=== PATIENT | male | born 1965 | race Caucasian/White ===

== ENCOUNTER 2019-09-04 09:31 | Inpatient (IN) | payer BC ==
[~2019-09-04] VITALS: Ht 182.9 cm; Wt 86.9 kg
[2019-09-04 09:40] LABS: Calcium, Ionized (POC) 1.13 mmol/L (1.10-1.46); Chloride (POC) 108 mmol/L (98-108); Creatinine (POC) 1.1 mg/dL (0.8-1.3); Glucose (ISTAT POC) 452 mg/dL (70-99); Hemoglobin (POC) 15.3 g/dL (13.5-17.5); Potassium (POC) 3.2 mmol/L (3.5-5.5); Sodium (POC) 141 mmol/L (135-148); Total CO2 (POC) 19 mmol/L (21-32)
[2019-09-04 09:41] LABS: Base Excess Venous -22.1 mmol/L; Bicarbonate Venous 8.8 mmol/L (24.0-30.0); PCO2 Venous 54.9 mmHg (38-42); PO2 Venous 55.7 mmHg (38-42)
[2019-09-04 10:09] LABS: BASOPHILS ABSOLUTE AUTO 0.22 K/mm3 (0.00-0.23); BASOPHILS PERCENT AUTO 1 % (0-2); EOSINOPHILS ABSOLUTE AUTO 0.23 K/mm3 (0.00-0.68); EOSINOPHILS PERCENT AUTO 1 % (0-6); Hematocrit 46.7 % (37.0-53.0); Hemoglobin 14.1 g/dL (13.5-17.5); IMMATURE GRAN ABSOLUTE AUTO 1.34 K/mm3 (0.00-0.10); IMMATURE GRAN PERCENT AUTO 5 % (0-1); LYMPHOCYTES ABSOLUTE AUTO 12.51 K/mm3 (0.84-5.20); LYMPHOCYTES PERCENT AUTO 50 % (21-46); MONOCYTES ABSOLUTE AUTO 1.42 K/mm3 (0.16-1.47); MONOCYTES PERCENT AUTO 6 % (4-13); Mean Corpuscular HGB 30.1 pg (26.0-34.0); Mean Corpuscular HGB Conc 30.2 g/dL (31.5-36.5); Mean Corpuscular Volume 100 fL (80-100); Mean Platelet Volume 12.3 fL (9.1-12.4); NEUTROPHILS ABSOLUTE AUTO 9.51 K/mm3 (1.96-9.15); NEUTROPHILS PERCENT AUTO 38 % (41-73); NRBC ABSOLUTE 0.07 K/mm3 (0.00-0.02); NRBC Auto 0.3 /100 WBC (0.0-0.2); Platelet Count 204 K/mm3 (150-400); RDW Coefficient Variation 13.3 % (11.7-14.2); RDW Standard Deviation 49.2 fL (35.1-46.3); Red Blood Cell Count 4.69 M/mm3 (4.30-5.90); White Blood Cell Count 25.23 K/mm3 (4.00-11.30)
[2019-09-04 10:37] LABS: Troponin I 0.274 ng/mL (0.000-0.040)
[2019-09-04 10:40] LABS: Alanine Aminotransfer (ALT/SGP 142 U/L (12-78); Albumin, Blood 2.8 g/dL (3.4-5.0); Albumin/Globulin Ratio 0.9 (0.8-1.8); Alk Phos 146 U/L (50-136); Anion Gap 17 mmol/L (6-16); Aspartate Aminotrans (AST/SGOT 158 U/L (12-37); Bilirubin, Total 0.2 mg/dL (0.1-1.0); Blood Urea Nitrogen 12 mg/dL (8-24); Bun/Creatinine Ratio 14.2 (12.0-20.0); CO2, Blood 16 mmol/L (21-32); Calcium, Blood 8.4 mg/dL (8.5-10.1); Chloride, Blood 108 mmol/L (98-108); Creatinine, Blood 0.84 mg/dL (0.60-1.20); Globulin, Blood 3.2 g/dL (2.2-4.0); Glomerular Filtration Rate >60 (60-); Glucose, Blood 609 mg/dL (70-99); Potassium, Blood 4.3 mmol/L (3.5-5.5); Sodium, Blood 141 mmol/L (136-145)
[2019-09-04 12:48] LABS: Cholesterol 161 mg/dL (50-200); Ethanol (Alcohol), Blood, Med 3 mg/dL; HDL Cholesterol 54 mg/dL (>39); LDL/HDL RATIO 1.3; Low Density Lipoprotein Chol 69 mg/dL (0-110); Triglycerides 188 mg/dL (30-160); Very Low Density Lipoprot Chol 37 mg/dL (6-32)
[2019-09-04 12:49] LABS: International Normalized Ratio 1.02; Prothrombin Time Results 10.8 Sec (9.7-11.5)
[2019-09-04] MEDS ORDERED: INSULIN (13:30)
--- NOTE | 2019-09-04 13:30 | NUR ---
PT ARRIVES TO UNIT FROM [facility] AT 1307 POST STENT PLACEMENT TO MID LAD. REPORT FROM DUNIA BRITTON. PT ARRIVES INTUBATED, AC 14/450/5/60%. LUNGS CLEAR. OGT IN PLACE AND CLAMPED. PT OPENS EYES, FOLLOWS COMMANDS. APPEARS TO RECOGNIZE FAMILY IN ROOM. CALM AND COOPERATIVE. ORIENTED TO ROOM AND EVENTS. MERIDA PATENT, DRAINING CLEAR YELLOW URINE. VENOUS AND ARTERIAL SHEATH TO RIGHT GROIN, SITE CHECKED c DUNIA RN. NO BLEEDING NOTED, SOFT, NON TENDER. WILL MAINTAIN SUPINE POSITION. AMIODORONE INFUSING AT 1 MCG/MIN. STARTED PROPOFOL AT 15 MCG/KG/MIN AND NS AT 125 ML/HR. FAMILY AT BEDSIDE. WILL CONTINUE TO MONITOR.
[2019-09-04 15:21] LABS: Source, Urine Catheter
--- NOTE | 2019-09-04 15:21 | NUR ---
DR PATRICK AND DR Ritchie IN TO SEE PT. PT FOLLOWING COMMANDS, BREATHING c SPONTANEOUS TRIAL. PROPOFOL PLACED ON STANDBY AT 1425. RT AT BEDSIDE FOR EXTUBATION. PT EXTUBATED AT 1440, PLACED ON 4L O2 VIA NC. PT ABLE TO MANAGE SECRETIONS, COUGH PRESENT. SPEAKING IN QUIET VOICE. ORIENTED TO ROOM AND EVENTS. PT VERBALIZES UNDERSTANDING. NEW ORDERS OBTAINED FROM DR PATRICK. INSULIN BOLUS 10 UNITS IV, INFUSION AT 9 UNITS/HR, VERIFIED c TIA BRITTON. URINE SENT TO LAB FOR KETONES. WILL MONITOR NEURO STATUS PRIOR TO CT SCAN. PER DR Ritchie, HEPARIN DRIP HELD. WILL CHECK CHEMBG Q1.
[2019-09-04 15:27] LABS: Bilirubin, Urine Neg (Neg); Blood, Urine 5+ (Neg); Glucose Qualitative, Urine 4+ (Neg); Ketones, Urine Neg (Neg); Leukocyte Esterase, Urine Neg (Neg); Nitrite, Urine Neg (Neg); Protein, Urine 3+ (Neg); Urobilinogen, Urine NORM (Normal)
[2019-09-04 15:33] LABS: Appearance, Urine Hazy (Clear); Color, Urine Yellow (P-Yellow)
[2019-09-04 15:36] LABS: Red Blood Cells, Urine 25-50 /hpf (0-2)
[2019-09-04 15:37] LABS: Bacteria Many /hpf; Squamous Epithelial Cells Rare /hpf (Few)
[2019-09-04 15:37] LABS: Glucose, Blood 468 mg/dL (70-99)
[2019-09-04 15:39] LABS: Amorphous Light (0-Heavy)
[2019-09-04 15:42] LABS: U Amphetamine Screen Not Detected; U Barbituate Screen Not Detected; U Benzodiazapine Screen Not Detected; U Buprenorphine Screen Not Detected; U Cannabinoids Screen DETECTED; U Cocaine Screen Not Detected; U Methadone Screen Not Detected; U Methamphetamine Screen Not Detected; U Opiates Screen Not Detected; U Oxycodone Screen Not Detected; U Phencyclidine Screen Not Detected; U Propoxyphene Screen Not Detected
[2019-09-04 15:44] LABS: Anion Gap 11 mmol/L (6-16); Blood Urea Nitrogen 17 mg/dL (8-24); CO2, Blood 18 mmol/L (21-32); Calcium, Blood 7.9 mg/dL (8.5-10.1); Chloride, Blood 111 mmol/L (98-108); Glomerular Filtration Rate >60 (60-); Glucose, Blood 468 mg/dL (70-99); Potassium, Blood 4.2 mmol/L (3.5-5.5); Sodium, Blood 140 mmol/L (136-145)
[2019-09-04 16:11] LABS: Base Excess Venous -12.7 mmol/L; Bicarbonate Venous 14.1 mmol/L (24.0-30.0); PCO2 Venous 52.1 mmHg (38-42); PO2 Venous 39.9 mmHg (38-42); pH Blood Venous 7.12 (7.34-7.37)
[2019-09-04 16:32] LABS: Anion Gap 9 mmol/L (6-16); Blood Urea Nitrogen 18 mg/dL (8-24); CO2, Blood 18 mmol/L (21-32); Calcium, Blood 7.7 mg/dL (8.5-10.1); Chloride, Blood 113 mmol/L (98-108); Creatinine, Blood 1.06 mg/dL (0.60-1.20); Glomerular Filtration Rate >60 (60-); Glucose, Blood 439 mg/dL (70-99); Potassium, Blood 4.1 mmol/L (3.5-5.5); Sodium, Blood 140 mmol/L (136-145)
--- NOTE | 2019-09-04 17:49 | NUR ---
SHIFT SUMMARY PT TO ICU FROM [facility] POST CARDIAC ARREST AND STENT PLACEMENT TO MID LAD. PT EXTUBATED THIS SHIFT. FOLLOWING COMMANDS. A&O X2. REPETITIVE QUESTIONING REGARDING EVENTS THAT LED TO HOSPITALIZATION. O2 AT 4L VIA NC. MERIDA CATH REMAINS IN PLACE. RECTAL TUBE PLACED FOR LOOSE FREQUENT STOOLS. RIGHT GROIN VENOUS AND ARTERIAL SHEATHS REMAIN IN PLACE. AWAITING PTT RESULTS. VSS. RHYTHM UNCHANGED FROM ARRIVAL TO UNIT. INSULIN DRIP STARTED, CURRENTLY INFUSING AT 9 UNITS/HR. AMIODORONE INFUSING AT 0.5MG/MIN. PER DR D, REPEAT ASA 325 MG PO AND BRILLENTA 180 MG PO WHEN PT CAN SWALLOW D/T PT VOMITING POST EXTUBATION. WILL CONTINUE TO MONITOR TROPONIN AND LACTIC ACID TRENDS. REPORT TO ONCOMING NURSE.
[2019-09-04 18:59] LABS: Base Excess Venous -10.8 mmol/L; Bicarbonate Venous 16.1 mmol/L (24.0-30.0); PCO2 Venous 40.9 mmHg (38-42); PO2 Venous 45.1 mmHg (38-42)
[2019-09-04 19:00] LABS: pH Blood Venous 7.22 (7.34-7.37)
[2019-09-04 19:37] LABS: Anion Gap 9 mmol/L (6-16); Blood Urea Nitrogen 21 mg/dL (8-24); Bun/Creatinine Ratio 21.4 (12.0-20.0); CO2, Blood 17 mmol/L (21-32); Calcium, Blood 7.5 mg/dL (8.5-10.1); Chloride, Blood 117 mmol/L (98-108); Creatinine, Blood 0.98 mg/dL (0.60-1.20); Glomerular Filtration Rate >60 (60-); Glucose, Blood 324 mg/dL (70-99); Potassium, Blood 3.5 mmol/L (3.5-5.5); Sodium, Blood 143 mmol/L (136-145)
[2019-09-04 21:06] LABS: PCO2 Arterial 32.9 mmHg (35-45); PO2 Arterial 58.9 mmHg (80-100); pH Blood Arterial 7.29 (7.35-7.45)
[2019-09-04 22:01] LABS: Creatine Kinase MB 36.7 ng/mL (0.0-3.6)
--- NOTE | 2019-09-04 22:26 | NUR ---
BEGIN SHIFT PT. LYING IN BED, COMFORTABLE, 7/10 DULL NON-SPECIFIC CHEST/THORAX PAIN, LIKELY FROM MULTIPLE ROUNDS OF CPR. WILL GIVE FENTANYL WHEN FINISHED WITH ASSESSMENT. SPO2 100% ON 4L NC, TITRATE DOWN TO 3L, INFORMED RT. LR WITH 60MEQ OF POTASSIUM RUNNING AT 100 ML/HR, NS RUNNING @ 125 ML/HR, AMIODARONE AT MAINTENANCE OF 0.5 MG/MIN (16.7 ML/HR.) ASSESSMENT, VITALS ARE CHARTED. WILL CONTINUE TO MONITOR. 20:25 PT. C/O SUDDEN SHARP CHEST MID-STERNAL CHEST PAIN, S.O.B. SPO2 NOW 84% ON 3L, HAD STARTED TO TITRATE DOWN AT BEGIN OF SHIFT. PAGED CARDIOLOGY AFTER PLACING PT. ON NON-REBREATHER @ 15L (SPO2 NOW ~ 92%,) ORDERED STAT CHEST XRAY, ABG, ALSO SPOKE WITH DR. PATRICK, GIVE 40 MG LASIX. LIKELY PULMONARY EDEMA, NO CHANGE ON EKG, MINIMAL CHANGE OF CHEST XRAY. PATIENT PLACED ON BIPAP, 05/10, 40%. CHEST PAIN AND SHORTNESS OF BREATH RESOLVED WITH BIPAP. WILL CONINUE TO MONITOR.
[2019-09-04 22:27] LABS: Creatine Kinase MB Index 2.8 (0.0-4.0); Troponin I 5.72 ng/mL (0.000-0.040)
[2019-09-05 03:07] LABS: BASOPHILS ABSOLUTE AUTO 0.05 K/mm3 (0.00-0.23); BASOPHILS PERCENT AUTO 0 % (0-2); EOSINOPHILS PERCENT AUTO 0 % (0-6); IMMATURE GRAN ABSOLUTE AUTO 0.13 K/mm3 (0.00-0.10); IMMATURE GRAN PERCENT AUTO 1 % (0-1); LYMPHOCYTES ABSOLUTE AUTO 1.95 K/mm3 (0.84-5.20); LYMPHOCYTES PERCENT AUTO 7 % (21-46); MONOCYTES ABSOLUTE AUTO 2.19 K/mm3 (0.16-1.47); MONOCYTES PERCENT AUTO 8 % (4-13); Mean Corpuscular HGB 30.2 pg (26.0-34.0); Mean Corpuscular HGB Conc 33.3 g/dL (31.5-36.5); Mean Platelet Volume 11.8 fL (9.1-12.4); NEUTROPHILS ABSOLUTE AUTO 22.11 K/mm3 (1.96-9.15); NEUTROPHILS PERCENT AUTO 84 % (41-73); Platelet Count 279 K/mm3 (150-400); RDW Coefficient Variation 13.4 % (11.7-14.2); Red Blood Cell Count 4.64 M/mm3 (4.30-5.90); White Blood Cell Count 26.43 K/mm3 (4.00-11.30)
[2019-09-05 03:09] LABS: Mean Corpuscular Volume 91 fL (80-100)
[2019-09-05 03:26] LABS: Alanine Aminotransfer (ALT/SGP 220 U/L (12-78); Albumin, Blood 3.1 g/dL (3.4-5.0); Albumin/Globulin Ratio 0.9 (0.8-1.8); Alk Phos 126 U/L (50-136); Anion Gap 10 mmol/L (6-16); Aspartate Aminotrans (AST/SGOT 179 U/L (12-37); Bilirubin, Total 0.5 mg/dL (0.1-1.0); Blood Urea Nitrogen 17 mg/dL (8-24); Bun/Creatinine Ratio 19.1 (12.0-20.0); CO2, Blood 18 mmol/L (21-32); Calcium, Blood 8.1 mg/dL (8.5-10.1); Chloride, Blood 117 mmol/L (98-108); Creatinine, Blood 0.89 mg/dL (0.60-1.20); Globulin, Blood 3.5 g/dL (2.2-4.0); Glomerular Filtration Rate >60 (60-); Glucose, Blood 298 mg/dL (70-99); Magnesium, Blood 1.7 mg/dL (1.6-2.4); Sodium, Blood 145 mmol/L (136-145); Total Protein, Blood 6.6 g/dL (6.4-8.2)
--- NOTE | 2019-09-05 07:30 | NUR ---
ASSUMED CARE AT 0700. REPORT FROM LUIS BRITTON. PT RESTING IN BED. CONVERSING c FAMILY. REQUESTING WATER. PT REMAINS SUPINE c BED TILTED. A&OX 3. ANSWERS MOST QUESTIONS APPROPRIATELY. FOLLOWS COMMANDS. C/O CHEST WALL PAIN. PER NOC NURSE, ECTOPY NOTED, CONTROL AREA OPERATOR CALLED, MAG ORDERED. LUNGS COARSE THROUGHOUT. OCCASIONAL COUGH. PT P/W/D. O2 VIA NC AT 4L. ABD ROUND, SOFT NON TENDER. RECTAL TUBE IN PLACE, DRAINING TO GRAVITY, LOOSE BROWN STOOL. MERIDA PATENT AND DRAINING TO GRAVITY. ARTERIAL AND VENOUS SHEATH IN PLACE. NO PAIN, SWELLING OR BLEEDING. PPP. VSS. WILL CONTINUE TO MONITOR.
--- NOTE | 2019-09-05 07:39 | NUR ---
SHIFT SUMMARY PATIENT DID WELL THROUGH NIGHT. MILD PAIN, CONTROLLED WELL WITH PRN PAIN MEDS. CONTINUOUSLY ASKED FOR WATER, STATED NEED TO PEE. GAVE SWABS, HELD OFF ON FLUID UNTIL DETERMINATION OF GOING TO GENERAL SUPERINTENDENT OR NOT. SWABBED MOUTH FREQUENTLY TO NO AVAIL. RE-EDUCATED ON PRESENCE OF MERIDA CATHETER TO NO AVAIL. VS MAINTAINED WELL CHARTED. NO NEW CHEST PAIN. RESPIRATORY GREATLY IMPROVED WITH BIPAP. HAD X2 EXTRA-LARGE EXPECTORATED PHLEGM, IMPROVED LUNG SOUNDS FOLLOWED. RECTAL TUBE & MERIDA IN PLACE, DRAINING APPROPRIATELY. RIGHT FEMORAL SHEATHS REMAINED IN PLACE PER DR. LY. WILL CONTINUE TO MONITOR.
[2019-09-05 09:03] LABS: Creatine Kinase MB 21.1 ng/mL (0.0-3.6)
[2019-09-05 09:17] LABS: Creatine Kinase MB Index 1.5 (0.0-4.0); Troponin I 2.74 ng/mL (0.000-0.040)
[2019-09-05 13:13] LABS: Anion Gap 9 mmol/L (6-16); Blood Urea Nitrogen 18 mg/dL (8-24); Bun/Creatinine Ratio 22.7 (12.0-20.0); CO2, Blood 21 mmol/L (21-32); Calcium, Blood 8.5 mg/dL (8.5-10.1); Chloride, Blood 114 mmol/L (98-108); Creatinine, Blood 0.79 mg/dL (0.60-1.20); Glomerular Filtration Rate >60 (60-); Glucose, Blood 282 mg/dL (70-99); Potassium, Blood 3.8 mmol/L (3.5-5.5); Sodium, Blood 144 mmol/L (136-145)
--- NOTE | 2019-09-05 13:15 | NUR ---
VENOUS AND ARTERIAL SHEATHS REMOVED, PRESSURE HELD, SMALL HEMATOMA DEVELOPED TO ARTERIAL SITE, PRESSURE REAPPLIED, HEMATOMA RESOLVED AND NO FURTHER BLEEDING. ECHO COMPLETE. AFTER TAKING DRINK OF APPLE JUICE, PT REPORTED "HEAD MUÑOZ" AND SOB, VTACH ON MONITOR. PT RESPONSIVE EPISODE. DR PATRICK, CRASH CART, ADDITIONAL STAFF TO ROOM. RHYTHM RESOLVED AFTER <[address] PLACED TO DR BRIGHT. AMIODORONE DRIP D/C'D, PO HELD, MEDICATED c METOPROLOL PO, EKG COMPLETE AND SENT TO [facility], MEDICATED c MAG SULFATE 2 GM IVPB AND LABS DRAWN. WILL CONTINUE TO MONITOR.
[2019-09-05 15:19] LABS: BASOPHILS ABSOLUTE AUTO 0.05 K/mm3 (0.00-0.23); BASOPHILS PERCENT AUTO 0 % (0-2); EOSINOPHILS PERCENT AUTO 0 % (0-6); Hematocrit 40.1 % (37.0-53.0); Hemoglobin 13.3 g/dL (13.5-17.5); IMMATURE GRAN ABSOLUTE AUTO 0.18 K/mm3 (0.00-0.10); IMMATURE GRAN PERCENT AUTO 1 % (0-1); LYMPHOCYTES ABSOLUTE AUTO 3.23 K/mm3 (0.84-5.20); LYMPHOCYTES PERCENT AUTO 11 % (21-46); MONOCYTES ABSOLUTE AUTO 2.57 K/mm3 (0.16-1.47); MONOCYTES PERCENT AUTO 8 % (4-13); Mean Corpuscular HGB 30.5 pg (26.0-34.0); Mean Corpuscular HGB Conc 33.2 g/dL (31.5-36.5); Mean Corpuscular Volume 92 fL (80-100); Mean Platelet Volume 11.9 fL (9.1-12.4); NEUTROPHILS ABSOLUTE AUTO 24.71 K/mm3 (1.96-9.15); NEUTROPHILS PERCENT AUTO 80 % (41-73); Platelet Count 232 K/mm3 (150-400); RDW Coefficient Variation 13.7 % (11.7-14.2); RDW Standard Deviation 46.9 fL (35.1-46.3); Red Blood Cell Count 4.36 M/mm3 (4.30-5.90); White Blood Cell Count 30.74 K/mm3 (4.00-11.30)
--- NOTE | 2019-09-05 15:33 | NUR ---
PT INTUBATED DUE TO CARDIAC ARREST IN ICU 8. PATIENT TOLERATED PROCEDURE WELL, SET UP ON VENT, SEDATED AND STABLE AT THIS TIME.
[2019-09-05 15:34] LABS: International Normalized Ratio 1.04
[2019-09-05 15:38] LABS: Anion Gap 10 mmol/L (6-16); Blood Urea Nitrogen 18 mg/dL (8-24); Bun/Creatinine Ratio 22.4 (12.0-20.0); CO2, Blood 20 mmol/L (21-32); Calcium, Blood 8.3 mg/dL (8.5-10.1); Chloride, Blood 113 mmol/L (98-108); Glomerular Filtration Rate >60 (60-); Glucose, Blood 308 mg/dL (70-99); Magnesium, Blood 2.7 mg/dL (1.6-2.4); Phosphorus, Blood 3.2 mg/dL (2.5-4.9); Potassium, Blood 3.8 mmol/L (3.5-5.5); Sodium, Blood 143 mmol/L (136-145)
--- NOTE | 2019-09-05 19:10 | NUR ---
SHIFT SUMMARY VENOUS AND ARTERIAL SHEATH TO RIGHT FEMORAL SITE REMOVED THIS SHIFT. PT A&O X 2, NEURO STATUS UNCHANGED, DENIED COMPLAINTS PRIOR TO FOLLOWING EPISODE. PT c SEVERAL SHORT RUNS OF VTACH THIS SHIFT, SUSTAINED VTACH AT 1458, PULSELESS. CODE CALLED. SEE CODE SHEET, PT INTUBATED BY DR OSMAN FROM ER. ONE ROUND CPR, VTACH ON MONITOR, DEFIBRILLATED 120J, PULSES PRESENT. DR MONTANO, CELINA AND [place] NOTIFIED. LEFT FEMORAL CENTRAL LINE PLACED BY DR PATRICK. OOZING BLOOD, DRESSING CHANGED AT [address] EPI DRIP START. TITRATED FOR MAP >60. PT TO RIB TRIM SEPARATOR. RIGHT RADIAL ACCESS, TR BAND c 9ML PLACED AT 1720, ACT 208. PT REQUIRING PROPOFOL 65 MCG/KG/HR, PRECEDEX STARTED AT 0.4 MCG/KG/HR. EPI D/C'D AND LEVOPHED STARTED, TITRATED FOR MAP >65, INFUSING AT 16 MCG/MIN AT THIS TIME. ONE TIME DOSE OF VANCO GIVEN PER USARA. OGT TO LOW INTERMITTANT SUCTION, DARK MAROON EMESIS OUT. REPORT TO ONCOMING NURSE.
[2019-09-05 19:44] LABS: PCO2 Arterial 33.6 mmHg (35-45); PO2 Arterial 108 mmHg (80-100); pH Blood Arterial 7.38 (7.35-7.45)
[2019-09-06 04:11] LABS: BASOPHILS ABSOLUTE AUTO 0.06 K/mm3 (0.00-0.23); BASOPHILS PERCENT AUTO 0 % (0-2); EOSINOPHILS ABSOLUTE AUTO 0.08 K/mm3 (0.00-0.68); EOSINOPHILS PERCENT AUTO 0 % (0-6); Hematocrit 35.9 % (37.0-53.0); Hemoglobin 11.9 g/dL (13.5-17.5); IMMATURE GRAN ABSOLUTE AUTO 0.14 K/mm3 (0.00-0.10); IMMATURE GRAN PERCENT AUTO 1 % (0-1); LYMPHOCYTES ABSOLUTE AUTO 4.99 K/mm3 (0.84-5.20); LYMPHOCYTES PERCENT AUTO 21 % (21-46); MONOCYTES ABSOLUTE AUTO 1.83 K/mm3 (0.16-1.47); MONOCYTES PERCENT AUTO 8 % (4-13); Mean Corpuscular HGB 30.7 pg (26.0-34.0); Mean Corpuscular HGB Conc 33.1 g/dL (31.5-36.5); Mean Corpuscular Volume 93 fL (80-100); Mean Platelet Volume 12.5 fL (9.1-12.4); NEUTROPHILS ABSOLUTE AUTO 16.75 K/mm3 (1.96-9.15); NEUTROPHILS PERCENT AUTO 70 % (41-73); Platelet Count 219 K/mm3 (150-400); RDW Standard Deviation 47.8 fL (35.1-46.3); Red Blood Cell Count 3.87 M/mm3 (4.30-5.90); White Blood Cell Count 23.85 K/mm3 (4.00-11.30)
--- NOTE | 2019-09-06 04:28 | NUR ---
SHIFT SUMMARY PATIENT DID WELL THROUGH NIGHT. SEDATION WELL CONTROLLED WITH PROPOFOL REMAINING @ 35 MCG/KG/MIN, PRECEDEX @ 0.4 MCG/KG/HR. WILL OCASSIONALLY OPEN EYES, MOVE AROUND, THEN RIGHT BACK TO SLEEP IN ABOUT 10 SECONDS. PATIENT WAS SUCTIONED MULTIPLE TIMES, INFREQUENTLY GETTING SPUTUM, DOES APPEAR MORE CLEAR/WHITE VS BEGIN OF SHIFT, WAS THICK/REAL. VENTILATOR SETTINGS, ETT PLACEMENT REMAIN UNCHANGED. TRANSVENOUS PACER REMAINS IN PLACE, NO CHANGE. TR BAND WAS EFFECTIVELY REMOVED @ 02:00, NO S/S OF BLEEDING, NO HEMATOMA. RECTAL TUBE AND MERIDA CATH REMAIN IN PLACE, DRAINING APPROPRIATELY. RECENTLY URINE PRODUCTION HAS SLOWED. LEVOPHED INCREASED TO 20 MCG/MIN, VASOPRESSIN RECENTLY STARTED FOR HYPOTENSION. SEE EMAR. WILL CONTINUE TO MONITOR.
[2019-09-06 04:35] LABS: Alanine Aminotransfer (ALT/SGP 141 U/L (12-78); Albumin, Blood 2.7 g/dL (3.4-5.0); Albumin/Globulin Ratio 0.9 (0.8-1.8); Alk Phos 96 U/L (50-136); Anion Gap 6 mmol/L (6-16); Aspartate Aminotrans (AST/SGOT 51 U/L (12-37); Bilirubin, Total 0.4 mg/dL (0.1-1.0); Blood Urea Nitrogen 15 mg/dL (8-24); Bun/Creatinine Ratio 16.3 (12.0-20.0); CO2, Blood 25 mmol/L (21-32); Calcium, Blood 8.1 mg/dL (8.5-10.1); Chloride, Blood 113 mmol/L (98-108); Creatinine, Blood 0.92 mg/dL (0.60-1.20); Glomerular Filtration Rate >60 (60-); Glucose, Blood 233 mg/dL (70-99); Potassium, Blood 3.7 mmol/L (3.5-5.5); Sodium, Blood 144 mmol/L (136-145); Total Protein, Blood 5.7 g/dL (6.4-8.2)
[2019-09-06 04:43] LABS: CPK Creatine Kinase 1175 U/L (39-308)
--- NOTE | 2019-09-06 08:00 | NUR ---
ASSUMED CARE : ASSUMED CARE OF PT @ 0800, RECEVIED REPORT FROM JAMEY BRITTON. UPON ENTERING PT ON VENT WITH SETTING : AC16/450/5/40%. PT IS SEDATED WITH PROPOFOL @ 35MCG/KG/MIN, AND PRECEDEX @ 0.4MCG/KG/HR. PT IS ABLE TO RESPOND TO PAINFUL SITMULI. OG TUBE IN PLACED TO INTERMIT SUCTION, BROWN COFFEE GROUND DRAINAGE. PT BEING 100% PACED WITH HR SET AT 100 BPM. PT CURRENTLY ON 16MCG/MIN OF LEVOPHED AND 0.04U/MIN OF VASOPRESSING. RIGHT WRIST AND R GRION CATH INSERTION SITES C/D/I NO ACTIVE BLEEDING AT THIS TIME. ALSO NO ACTIVE BLEEDING TO LEFT FEMORAL CENTRAL CATH SITE , NEPTUM DRESSING IN PLACE, WILL BE CHANGED TODAY. MERIDA CATH DRAINING CLOUDY MARILEE COLORED URINE WITH WHITE SEDIMENT. RECTAL TUBE IN PLACE WITH BROWN STOOL. WILL ATTEMPT TO TITRATE LEVOPHED THIS SHIFT.
[2019-09-06 15:47] LABS: Source, Urine Catheter
[2019-09-06 15:53] LABS: Bilirubin, Urine Neg (Neg); Blood, Urine Neg (Neg); Glucose Qualitative, Urine 4+ (Neg); Ketones, Urine 3+ (Neg); Leukocyte Esterase, Urine 1+ (Neg); Nitrite, Urine Neg (Neg); Protein, Urine 2+ (Neg); Urobilinogen, Urine NORM (Normal)
[2019-09-06 16:02] LABS: Appearance, Urine Hazy (Clear); Color, Urine Yellow (P-Yellow)
[2019-09-06 16:04] LABS: Bacteria Many /hpf; Mucus Light (0-Heavy); Red Blood Cells, Urine Rare /hpf (0-2); Squamous Epithelial Cells Not Seen /hpf (Few)
--- NOTE | 2019-09-06 18:31 | NUR ---
SHIFT SUMMARY: PT CONTINUES TO BE ON VENT WITH SETTINGS @ AC16/450/5/40%. PT IS ABLE TO RESPOND TO PAINFUL STIMULI. PT WAS PLACED ON A SEDATION VACATION (PROPOFOL DOWN TO 15MCG/KG/MIN) FOR ABOUT 20MIN, PT WAS ABLE TO TRACE WITH EYES AND FOLLOW COMMANDS. PT WAS GIVEN 25MCG FENTYNAL AFTER SEDATION DUE TO S/S OF PAIN AND AGITATION. FAMILY WAS AT BEDSIDE. OG TUBING WAS REPLACED, CURRENT DRAINAGE IS GREEN IN COLOR. PT HAS HAD LOW URINE OUTPUT FOR SHIFT, URINE IS MARILEE AND CLOUDY WITH SEDIMENT (SAMPLE WAS COLLECTED). NO DRAINAGE IN RECATL TUBE THIS SHIFT, COLLECTION BAG CHANGED. CENTRAL LINE DRESSING WAS CHANGED, NO ACTIVE BLEEDING NOTED. LEVOPHED @ 7MCG/MIN, VASOPRESSIN.04U/MIN, PRECEDEX 0.4MCG/KG/HR. BED AT LOWEST LEVEL, WILL CONTINUE TO MONITOR UNTIL REPORT IS GIVEN TO ONCOMING SHIFT.
[2019-09-06 22:30] LABS: Anion Gap 9 mmol/L (6-16); Blood Urea Nitrogen 17 mg/dL (8-24); Bun/Creatinine Ratio 22.5 (12.0-20.0); CO2, Blood 24 mmol/L (21-32); Calcium, Blood 8.3 mg/dL (8.5-10.1); Chloride, Blood 109 mmol/L (98-108); Creatinine, Blood 0.76 mg/dL (0.60-1.20); Glomerular Filtration Rate >60 (60-); Glucose, Blood 255 mg/dL (70-99); Magnesium, Blood 1.6 mg/dL (1.6-2.4); Phosphorus, Blood 3.1 mg/dL (2.5-4.9); Potassium, Blood 3.8 mmol/L (3.5-5.5); Sodium, Blood 142 mmol/L (136-145)
[2019-09-07 04:15] LABS: BASOPHILS ABSOLUTE AUTO 0.06 K/mm3 (0.00-0.23); BASOPHILS PERCENT AUTO 0 % (0-2); EOSINOPHILS ABSOLUTE AUTO 0.05 K/mm3 (0.00-0.68); EOSINOPHILS PERCENT AUTO 0 % (0-6); Hematocrit 35.1 % (37.0-53.0); Hemoglobin 11.6 g/dL (13.5-17.5); IMMATURE GRAN ABSOLUTE AUTO 0.15 K/mm3 (0.00-0.10); IMMATURE GRAN PERCENT AUTO 1 % (0-1); LYMPHOCYTES ABSOLUTE AUTO 3.75 K/mm3 (0.84-5.20); LYMPHOCYTES PERCENT AUTO 17 % (21-46); MONOCYTES ABSOLUTE AUTO 1.76 K/mm3 (0.16-1.47); MONOCYTES PERCENT AUTO 8 % (4-13); Mean Corpuscular HGB 30.7 pg (26.0-34.0); Mean Corpuscular Volume 93 fL (80-100); Mean Platelet Volume 12.6 fL (9.1-12.4); NEUTROPHILS ABSOLUTE AUTO 16.55 K/mm3 (1.96-9.15); NEUTROPHILS PERCENT AUTO 74 % (41-73); Platelet Count 195 K/mm3 (150-400); RDW Coefficient Variation 14.1 % (11.7-14.2); RDW Standard Deviation 48.3 fL (35.1-46.3); Red Blood Cell Count 3.78 M/mm3 (4.30-5.90); White Blood Cell Count 22.32 K/mm3 (4.00-11.30)
[2019-09-07 04:36] LABS: Magnesium, Blood 2.1 mg/dL (1.6-2.4)
[2019-09-07 04:38] LABS: Alanine Aminotransfer (ALT/SGP 100 U/L (12-78); Albumin, Blood 2.6 g/dL (3.4-5.0); Albumin/Globulin Ratio 0.8 (0.8-1.8); Alk Phos 100 U/L (50-136); Anion Gap 8 mmol/L (6-16); Aspartate Aminotrans (AST/SGOT 29 U/L (12-37); Bilirubin, Total 0.5 mg/dL (0.1-1.0); Blood Urea Nitrogen 13 mg/dL (8-24); CO2, Blood 24 mmol/L (21-32); Calcium, Blood 8.2 mg/dL (8.5-10.1); Chloride, Blood 109 mmol/L (98-108); Creatinine, Blood 0.76 mg/dL (0.60-1.20); Globulin, Blood 3.2 g/dL (2.2-4.0); Glomerular Filtration Rate >60 (60-); Glucose, Blood 215 mg/dL (70-99); Potassium, Blood 4.3 mmol/L (3.5-5.5); Sodium, Blood 141 mmol/L (136-145); Total Protein, Blood 5.8 g/dL (6.4-8.2)
--- NOTE | 2019-09-07 07:05 | NUR ---
ASSUMED CARE: RECEIVED REPORT FROM NOC RN. HEART RATE IS NOTED TO BE BETWEEN 100-110'S WITH FREQUENT PACER SPIKES AND OCCATIONAL PVC. TRANSCUTANIOUS PACER WIRES ARE NOTED TO BE GOING THROUGH THE R JUGULAR AND SETTINGS ARE SET TO A RATE OF 100 AND A VOLT OF 5. DRESSING IS NOTED TO BE WNL AND INTACT, NO BLEEDING OF ANY KIND NOTED. PT IS NOTED TO BE ON VENT WITH EVEN BREATHS. CHEST IS NOTED TO APPEAR TO HAVE A QUIVER D/T BROKEN RIBS R/T CPR. IV FLUIDS RUNNING THROUGH GROIN CENTRAL LINE THAT HAS DRESSING INTACT WITH NO BLEEDING NOTED UNDER OR AROUND THE DRESSING. TWO IVS ARE NOTED TO BE SALINE LOCKED, ONE ON EACH ARM. FAMILY NOTED AT THE BEDSIDE, TWO SONS. TEMP IS NOTED TO BE 101.1 NO BLANKET OR SHEETS NOTED ON PT. FAN IS SET ON LOW BLOWING OVER PT. PUNCTURE SITES ON R GROIN AND R RADIAL ARE NOTED TO HAVE TEGADERM COVERING THEM WITH NO S/S OF BLEEDING. WILL CONTINUE TO MONITOR AND ASSESS FURTHER.
--- NOTE | 2019-09-07 07:10 | NUR ---
IVF: PROPOFOL RUNNING @ 35 MCG/KG/MIN LEVOPHED @ 10 MCG/MIN PRECEDEX @ 0.4 MCG/KG/HR NS @ TKO
--- NOTE | 2019-09-07 07:32 | NUR ---
SHIFT SUMMARY PATIENT OCASSIONALY WAKES UP THROUGH SEDATION, ABLE TO FOLLOW COMMANDS, ANSWERS YES/NO ?S, ORIENTED TO PERSON, PLACE,TIME, SITUATION, COMPLAINS OF SEVERE PAIN IN ABDOMEN. WHILE TURNING FOR BED BATH ~ 06:00 STRONG SMELL OF GASTRIC CONTENT WHILE COUGHING. WILL RELAY TO AM SHIFT. PACEMAKER RATE INCREASED TO [address] BRIGHT. SPUTUM FROM SUCTIONING MUCH BETTER, CLEAR/WHITE AND SMALL AMOUNT. ETT REMAINS IN PLACE, SETTINGS UNCHANGED. RECTAL TUBE OUTPUT MINIMAL, EVEN AFTER IRRIGATION. OG OUTPUT HIGH. RECOMMEND TO DAYSHIFT ABDOMINAL XRAY OR CT. URINE OUTPUT BETTER WITH A SYSTOLIC BP GREATER THAN 85. ASSESSMENT IS CHARTED. IT HAS BEEN A PLEASURE TAKING CARE OF THIS PATIENT.
--- NOTE | 2019-09-07 11:27 | NUR ---
GI MOTILITY: OG TUBE ON LOW INTERMITANT SUCTION NOTED TO HAVE 350ML OF DARK GREEN DURING COACH CLEANER. DISCUSSED WITH DR NEIL AND DR LY PLAN TO REDUCE THE USE OF FENTANYL AND INCREASE THE PROPOFOL AND PRECEDEX NEEDED. NARCAN PUSH GIVEN AND DRIP TO BE STARTED. TO PREVENT PROLONGED QT REGULAN WILL NOT BE GIVEN. PT WILL ALSO HAVE PROTONIX INCREASED TO TWICE A DAY.
--- NOTE | 2019-09-07 12:00 | NUR ---
NARCAN AND OG TUBE: PT IS GIVEN THE NARCAN PUSH AND THEN STARTED ON THE NARCAN DRIP AT 1 MG/HR AT THIS TIME. ADMINISTERED PO MEDICATIONS PER PT THEN CLAMPED PER ORDERS. WILL KEEP OG TUBE CLAMPTED FOR SEVERAL HOURS TO GIVE TIME TO INSURE ABSORPTION.
--- NOTE | 2019-09-07 13:41 | NUR ---
INCREASED PVC'S: PT IS NOTED TO START HAVING INCREASED PVC'S. APPROX 3 TO 4 BEATS EVERY MINUTE FOR APPROX [address] TUCKER CALLED, NOT AVAILABLE AT THIS TIME. OFFICE NOTIFIED AND WILL RELAY THE MESSAGE.
--- NOTE | 2019-09-07 15:30 | NUR ---
ELIVATED TEMP: PT TEMP IS NOTED TO BE INCREASING AND IS CURRENTLY 101.7. MAKE SHIFT SWAMP COOLER PLACED ON BEDSIDE TABLE BLOWING OVER PT. ICE PACKS WILL BE PLACED NEEDED AND POSSIBLY COOLING BLANKET. DR PATRICK NOTIFIED AND JOSE ORDERED.
--- NOTE | 2019-09-07 15:59 | NUR ---
FAMILY EDUCATION: NUMEROUS FAMILY HAVE BEEN IN AND OUT T/O THE DAY. ALL OF WHICH APPEAR TO BE VERY ANXIOUS AND TEARFUL. AND FAMILY EDUCATED BY THIS RN ALONG WITH DR PATRICK AND DR TUCKER T/O THE DAY ON THE PLAN OF CARE AND UPDATING CHANGES ARISE. FAMILY APPEAR TO CALM SLIGHTLY WITH THE FREQUENT EDUCATION AND UPDATES. FAMILY IS NOTED TO COME OUT OF THE ROOM FRANTIC OCCATIONALY WITH SLIGHT CHANGES TO THE PT, ATEMPT TO EDUCATE ON ALARMS AND PT REACTIONS TO VENT, PACER AND DRIPS.
[2019-09-08 05:20] LABS: BASOPHILS ABSOLUTE AUTO 0.08 K/mm3 (0.00-0.23); BASOPHILS PERCENT AUTO 0 % (0-2); EOSINOPHILS ABSOLUTE AUTO 0.11 K/mm3 (0.00-0.68); EOSINOPHILS PERCENT AUTO 1 % (0-6); Hematocrit 37.1 % (37.0-53.0); Hemoglobin 12.1 g/dL (13.5-17.5); IMMATURE GRAN ABSOLUTE AUTO 0.09 K/mm3 (0.00-0.10); IMMATURE GRAN PERCENT AUTO 0 % (0-1); LYMPHOCYTES ABSOLUTE AUTO 2.04 K/mm3 (0.84-5.20); LYMPHOCYTES PERCENT AUTO 10 % (21-46); MONOCYTES ABSOLUTE AUTO 1.88 K/mm3 (0.16-1.47); MONOCYTES PERCENT AUTO 9 % (4-13); Mean Corpuscular HGB 30.6 pg (26.0-34.0); Mean Corpuscular HGB Conc 32.6 g/dL (31.5-36.5); Mean Corpuscular Volume 94 fL (80-100); Mean Platelet Volume 12.6 fL (9.1-12.4); NEUTROPHILS ABSOLUTE AUTO 17.16 K/mm3 (1.96-9.15); NEUTROPHILS PERCENT AUTO 80 % (41-73); Platelet Count 207 K/mm3 (150-400); RDW Coefficient Variation 13.8 % (11.7-14.2); RDW Standard Deviation 46.9 fL (35.1-46.3); Red Blood Cell Count 3.96 M/mm3 (4.30-5.90); White Blood Cell Count 21.36 K/mm3 (4.00-11.30)
[2019-09-08 05:37] LABS: Anion Gap 8 mmol/L (6-16); Blood Urea Nitrogen 10 mg/dL (8-24); Bun/Creatinine Ratio 14.3 (12.0-20.0); CO2, Blood 23 mmol/L (21-32); Calcium, Blood 8.3 mg/dL (8.5-10.1); Chloride, Blood 112 mmol/L (98-108); Glomerular Filtration Rate >60 (60-); Glucose, Blood 229 mg/dL (70-99); Potassium, Blood 4.4 mmol/L (3.5-5.5); Sodium, Blood 143 mmol/L (136-145)
--- NOTE | 2019-09-08 06:30 | NUR ---
SHIFT SUMMARY PATIENT DID WELL THROUGH NIGHT. DRIPS WERE MAINTAINED MOSTLY THEY WERE AT BEGIN OF SHIFT, LEVOPHED WAS ABLE TO BE TITRATED DOWN RECENTLY TO 10 MCG/MIN. PATIENT DID WAKE UP BRIEFLY THROUGH SEDATION AROUND 05:00 COUGHING FROM SPUTUM BUILDUP, SUCTIONED, WENT BACK TO SLEEP, WAS ABLE TO ANSWER YES/NO TO NAME, BIRTHDAY, PAIN (DECLINED,) AND SQUEEZED FINGERS. VERY FEW PVS, ONLY NOTICED ~ 5 ENTIRE SHIFT. VENTILATOR SETTINGS, ETT PLACEMENT REMAINED THROUGH NIGHT. GASTRIC OUTPUT = 0. NO BM. GOOD URINE OUTPUT. IT HAS BEEN A PLEASURE TAKING CARE OF THIS PATIENT.
--- NOTE | 2019-09-08 08:00 | NUR ---
INITIAL ASSESSMENT PATIENT INTUBATED AND SEDATED. PATIENT RESPONDS TO PAINFUL STIMULI/ NURSING CARE. PATIENT HAS NO SIGNS OF PAIN OR DISCOMFORT AT THIS TIME. PATIENT HAS TEMP OF 99.0 DEGREES FAHRENHEIT. PATIENT ON VENT SETTINGS OF AC 16, TV 450, PEEP 5, 25% FIO2. LUNG SOUNDS CLEAR THROUGHOUT. MODERATE AMOUNT OF FROTHY, WHITE SPUTUM BEING SUCTIONED FROM ETT. PATIENT 100% V-PACED BY TRANSVENOUS PACEMAKER INSERTED INTO R IJ. RATE OF 100, MAMP OUTPUT OF 5. HR AT 99, BP STABLE ON LEVOPHED DRIP. PULSES FAINT ON PALPATION. ABDOMEN MODERATELY DISTENDED, SOFT, WITH NORMOACTIVE BS. OG IN PLACE, TO LIS. TEMP PROBE MERIDA DRAINING SMALL AMOUNT OF TEA COLORED URINE. R RADIAL AND R FEMORAL KICKBOXING INSTRUCTOR ACCESS SITES WNL. TEGADERMS C/D/I. NO BLEEDING, BRUISING, HEMATOMA NOTED. BRUISING/ SCAB TO CHEST FROM D.FIB PADS. BUTTOCKS REDDENED. PRECEDEX INFUSING AT 0.4 MCG/ KG/ HOUR, PROPOFOL AT 50 MG/ KG/ MINUTE, LEVOPHED AT 8 MCG/ MINUTE, NS TKO. BED LOW, CALL LIGHT IN REACH. FAMILY AT BEDSIDE.
[2019-09-08 08:23] LABS: Vancomycin, Trough 17.8 ug/mL (5.0-10.0)
--- NOTE | 2019-09-08 11:58 | NUR ---
DR. Ritchie TURNED DOWN TRANSVENOUS PACEMAKER TO RATE OF 80 FROM 100 SHORT [address] AGO[address] Ritchie AND INFORMED THAT TRANSVENOUS PACEMAKER NOT CAPTURING 100% ANY LONGER. INFORMED THAT PATIENT STARTING TO HAVE PVCS. STATED TO TURN PACEMAKER RATE BACK UP TO 100 AND WILL BE BACK DOWN AFTER VICE PRINCIPAL PROCEDURE TO CHECK ON PATIENT.
--- NOTE | 2019-09-08 12:00 | NUR ---
PATIENT REMAINS INTUBATED AND SEDATED. PATIENT AFEBRILE. PATIENT REMAINS SATTING 90% AND GREATER ON SAME VENT SETTINGS. PATIENT REMAINS V PACED, HR 99. BP STABLE ON LEVOPHED AT 8 MCG/ MINUTE. MERIDA DRAINING TEA/ GREEN COLORED URINE. PROPOFOL AND PRECEDEX REMAIN AT SAME RATE. BLOOD SUGAR OF 226- COVERAGE GIVEN. NO OTHER ACUTE CHANGES TO NOTE ON AT THIS TIME. WILL CONTINUE TO MONITOR.
--- NOTE | 2019-09-08 12:49 | NUR ---
DR. Ritchie HERE TO SEE PATIENT AND LOOK AT RHYTHM WHILE PATIENT PACER RATE AT 80. DOCTOR TURNED PACER RATE BACK DOWN FROM 100 TO 90 AND INCREASED OUTPUT TO 6 MAMP. WILL CONTINUE TO MONITOR.
[2019-09-08 16:23] LABS: Magnesium, Blood 2.1 mg/dL (1.6-2.4)
--- NOTE | 2019-09-08 17:01 | NUR ---
PATIENT RESTING QUIETLY IN BED. NO SIGNS OF PAIN OR DISCOMFORT. PATIENT AFEBRILE. PACER AT RATE OF 90 WITH OUTPUT OF 6 MAMP. HR AT 90. BP STABLE ON LEVOPHED AT 4 MCG/ MINUTE. PATIENT REMAINS SATTING WELL ON SAME VENT SETTINGS. PATIENT PLACED ON HOUR LONG SEDATION VACATION AND DID WELL. FOLLOWED SIMPLE COMMANDS AND MUCH FAMILY GATHERED AROUND AND SPEAKING TO HIM. RESIDUAL OF 5 MLS OBTAINED AND REINSTILLED FROM FEEDING TUBE. NO OTHER ACUTE CHANGES TO NOTE ON AT THIS TIME. DR. Ritchie BACK IN TO CHECK ON PATIENT. WILL CONTINUE TO MONITOR.
--- NOTE | 2019-09-08 18:29 | NUR ---
SHIFT SUMMARY PATIENT REMAINS INTUBATED AND ON SEDATION. PATIENT RESPONDED TO PAINFUL STIMULI AND NURSING CARE THROUGHOUT SHIFT. PATIENT TOLERATED SEDATION VACATION WELL FOR ABOUT AN HOUR. PATIENT ABLE TO FOLLOW SIMPLE COMMANDS AND HAVE HIS FAMILY SPEAK TO HIM. PATIENT HAD TMAX OF 99.1 DEGREES FAHRENHEIT. PATIENT REMAINED SATTING WELL ON VENT SETTINGS OF AC 16, TV 450, PEEP 5, FIO2 OF 25%. SPUTUM WHITE AND FROTHY MOST OF SHIFT. YELLOW IN COLOR AT END OF SHIFT. PATIENT REMAINED MOSTLY 100% V PACED. DR. Ritchie TRIED TO DECREASE RATE FROM 100 TO 80 TODAY, HOWEVER PATIENT STARTED TO HAVE PVCS. RATE TURNED BACK UP TO [address] Ritchie ABLE TO COME SEE PATIENT. DR. Ritchie TURNED RATE BACK DOWN TO 90 AND CHANGED MAMP FROM 5 TO 6. BP REMAINED STABLE ON LEVOPHED. LEVOPHED RANGED FROM 4 TO 10 MCG/ MINUTE. TF INFUSING AT GOAL RATE OF 10 MLS/ HOUR WITH 30 ML WATER FLUSH Q4H. RESIDUAL OF 5 THIS SHIFT. PATIENT DID NOT HAVE BM THIS SHIFT. DR. CASTILLO WANTS TO WAIT ANOTHER DAY BEFORE STARTING BOWEL CARE. MERIDA DRAINED ADEQUATE AMOUNT OF TEA/ GREEN COLORED URINE WITH SEDIMENT NOTED. R RADIAL AND R GROIN REFRACTORY FURNACE DESIGNER SITES REMAIN WNL- NO BLEEDING, BRUISING, HEMATOMA NOTED. PATIENT REPOSITIONED Q2H DURING SHIFT. PROPOFOL INFUSING AT 45 MCG/ KG/ MINUTE, LEVOPHED AT 5 MCG/ MINUTE, PRECEDEX AT 0.4 MCG/ KG/ HOUR. FAMILY HAS BEEN IN THE ROOM MOST OF THE DAY. PATIENT HAS NO SIGNS OF PAIN OR DISCOMFORT NOTED AT THIS TIME. AT BEDSIDE. WILL BE GIVING REPORT TO ONCOMING AUCTIONEER ART NURSE SHORTLY.
--- NOTE | 2019-09-08 21:00 | NUR ---
ASSUMPTION OF CARE ASSUMED CARE OF PT AT 1900, PT INTUBATED AND SEDATED, PROPOFOL @ 45mcg/kg/min, PRECEDEX @ 0.4mcg/kg/hr. PT OPENS EYES TO NOXIOUS STIMULI. VENT SET TO AC 16/450/5/25%, MAINTAINING O2 SATURATIONS ABOVE 90%. MONITOR SHOWS 100% VENTRICULARLY PACED RHYTHM, TRANSVENOUS PACER SET TO 90 bpm AND 6 MA, LEVO INCREASED FROM 5 TO 6mcg/min TO MAINTAIN MAP>65 AND SYSTOLIC>90. BOWEL TONES HYPOACTIVE, PT PASSING FLATUS, TF @ GOAL RATE OF 10ml/hr. MERIDA IN PLACE WITH MINIMAL URINAL OUTPUT. R RADIAL AND R GROIN SITES C/D/I, NO BRUISING OR HEMATOMAS NOTED.
[2019-09-09 04:10] LABS: Anion Gap 8 mmol/L (6-16); Blood Urea Nitrogen 12 mg/dL (8-24); Bun/Creatinine Ratio 18.6 (12.0-20.0); CO2, Blood 22 mmol/L (21-32); Calcium, Blood 7.9 mg/dL (8.5-10.1); Chloride, Blood 112 mmol/L (98-108); Creatinine, Blood 0.65 mg/dL (0.60-1.20); Glomerular Filtration Rate >60 (60-); Glucose, Blood 177 mg/dL (70-99); Magnesium, Blood 1.7 mg/dL (1.6-2.4); Phosphorus, Blood 3.3 mg/dL (2.5-4.9); Potassium, Blood 3.9 mmol/L (3.5-5.5); Sodium, Blood 142 mmol/L (136-145)
--- NOTE | 2019-09-09 06:53 | NUR ---
SHIFT SUMMARY PT REMAINS INTUBATED AND SEDATE, PROPOFOL @45 AND PRECEDEX @0.4, PT OPENS EYES TO NOXIOUS STIMULI AND NURSING CARE, OCCASSIONALLY NODS HEAD TO YES/NO QUESTIONS. VENT SET TO AC 16/450/5/25%, O2 SATURATIONS MAINTAINED ABOVE 90% T/O SHIFT. MONITOR SHOWS VENTRICULARLY PACED RHYTHM WITH SOME PVC'S, LEVOPHED @7. MERIDA IN PLACE, DRAINING DARK GREEN URINE. MORNING LABS SHOWED LOW POTASSIUM AND MAGNESIUM LEVELS, ELECTROLYTE REPLACEMENTS INITIATED.
[2019-09-09 08:15] LABS: Vancomycin, Trough 20.4 ug/mL (5.0-10.0)
--- NOTE | 2019-09-09 09:09 | NUR ---
DR. SIGALA AT BEDSIDE FOR ASSESSMENT. CHANGED TEMP PACEMAKER SETTINGS TO RATE OF 70 WITH 10 MILLIAMPS. ASKED TO HAVE POTASSIUM AND MAGNESIUM LEVELS RE-CHECKED AT NOON; ORDERS PLACED. ASKED THAT NURSING CALL IF PT HAS MORE THAN 1 PVCS.
--- NOTE | 2019-09-09 10:13 | NUR ---
DR CASTILLO AT BEDSIDE TO ASSESS PT. DISCUSSED POTENTIAL TRANSFER TO HIGHER LEVEL OF CARE FOR AICD PLACEMENT. DR CASTILLO DISCUSSED CASE WITH DR LY AND SHE WILL CALL AND CONSULT WITH JERROD RE: ABOVE STATED. DISCUSSED WITH PT'S SON, THAT CARDIO CONSULT WITH JERROD IS BEING DONE.
--- NOTE | 2019-09-09 11:24 | NUR ---
RESP CARE CHANGED VENT SETTINGS TO SPONT, PEEP 5, PS 8.
[2019-09-09 12:12] LABS: Hemoglobin 10.5 g/dL (13.5-17.5); Mean Corpuscular HGB 29.7 pg (26.0-34.0); Mean Corpuscular HGB Conc 31.8 g/dL (31.5-36.5); Mean Corpuscular Volume 93 fL (80-100); Mean Platelet Volume 12.4 fL (9.1-12.4); Platelet Count 234 K/mm3 (150-400); RDW Coefficient Variation 13.9 % (11.7-14.2); RDW Standard Deviation 46.9 fL (35.1-46.3); Red Blood Cell Count 3.54 M/mm3 (4.30-5.90); White Blood Cell Count 16.19 K/mm3 (4.00-11.30)
[2019-09-09 12:20] LABS: Magnesium, Blood 1.9 mg/dL (1.6-2.4); Potassium, Blood 4.4 mmol/L (3.5-5.5)
[2019-09-09 12:44] LABS: BASOPHILS PERCENT MAN 0 % (0-2); EOSINOPHILS PERCENT MAN 0 % (0-6); LYMPHOCYTES ABSOLUTE MAN 2.26 K/mm3 (0.84-5.20); LYMPHOCYTES PERCENT MAN 14 % (21-46); MONOCYTES PERCENT MAN 5 % (4-13); NEUTROPHILS ABSOLUTE MAN 13.11 K/mm3 (1.96-9.15); SEG NEUTROPHILS PERCENT MAN 81 % (41-73); TOTAL CELLS COUNTED 100
--- NOTE | 2019-09-09 13:52 | NUR ---
DR. SIGALA AT BEDSIDE. PLAN IS FOR TRANSFER TO [facility] FOR PACEMAKER/AICD INSERTION. AWAITING BED ASSIGNMENT. TRIED PT OFF PACEMAKER; [employer] RHYTHM IN NSR IN 60'S WITH ST ELEVATION, NO PVC'S. PROVIDER TURNED PACEMAKER BACK ON WITH RATE OF 70. LEVOPHED RATE DECREASED TO 3 MCG/MIN.
--- NOTE | 2019-09-09 14:47 | NUR ---
DECREASED LEVOPHED TO 2 MCG/MIN. BP 104/68, MAP 80.
--- NOTE | 2019-09-09 17:51 | NUR ---
PATIENT TRANSFERRED OUT TO [facility] AT 1730 VIA [facility] WITH REACH PERSONNEL TO ATTEND. PT STABLE AT TIME OF DISCHARGE.
== END 2019-09-09 17:30 | disposition short-term general hospital (02) | DRG 246 ==
LOC: ER 09:31 → ICUE 10:13 → EDBD 10:13 → ICUW 10:13 → ICUE 11:26
PROVIDERS: Emergency Medicine; Internal Medicine Critical Care Medicine; Internal Medicine Interventional Cardiology; ADMIT Family Medicine
PROC: 4A023N7 Measurement of Cardiac Sampling and Pressure, Left Heart, Percutaneous Approach (ICD-10-PCS; principal; 2019-09-04)
PROC: 027034Z Dilation of Coronary Artery, One Artery with Drug-eluting Intraluminal Device, Percutaneous Approach (ICD-10-PCS; 2019-09-04)
PROC: B211YZZ Fluoroscopy of Multiple Coronary Arteries using Other Contrast (ICD-10-PCS; 2019-09-04)
PROC: 0BH17EZ Insertion of Endotracheal Airway into Trachea, Via Natural or Artificial Opening (ICD-10-PCS; 2019-09-04)
PROC: 5A1945Z Respiratory Ventilation, 24-96 Consecutive Hours (ICD-10-PCS; 2019-09-04)
PROC: 02C03ZZ Extirpation of Matter from Coronary Artery, One Artery, Percutaneous Approach (ICD-10-PCS; 2019-09-04)
PROC: 02HV33Z Insertion of Infusion Device into Superior Vena Cava, Percutaneous Approach (ICD-10-PCS; 2019-09-05)
PROC: 3E043XZ Introduction of Vasopressor into Central Vein, Percutaneous Approach (ICD-10-PCS; 2019-09-05)
DX: I25.82 Chronic total occlusion of coronary artery (principal); I49.01 Ventricular fibrillation; E11.11 Type 2 diabetes mellitus with ketoacidosis with coma; J96.01 Acute respiratory failure with hypoxia; A41.9 Sepsis, unspecified organism; R57.0 Cardiogenic shock; S22.42XA Multiple fractures of ribs, left side, initial encounter for closed fracture; M62.82 Rhabdomyolysis; I25.110 Atherosclerotic heart disease of native coronary artery with unstable angina pectoris; I10 Essential (primary) hypertension; F17.210 Nicotine dependence, cigarettes, uncomplicated; F10.20 Alcohol dependence, uncomplicated; E11.9 Type 2 diabetes mellitus without complications; F17.290 Nicotine dependence, other tobacco product, uncomplicated; Y65.8 Other specified misadventures during surgical and medical care; Y92.238 Other place in hospital as the place of occurrence of the external cause
CPT/HCPCS: 31500; 31720; 33210; 36415; 36556; 36600; 51702; 71045; 76937; 80047; 80048; 80053; 80061; 80202; 81001; 82550; 82553; 82803; 82947; 83036; 83605; 83735; 84100; 84132; 84443; 84484; 85007; 85014; 85025; 85027; 85347; 85610; 85730; 87040; 87086; 92950; 92978; 93005; 93010; 93306; 93458; 94002; 94003; 94640; 94660; 96374-59; 96375-59; 96376-59; 99152; 99153; 99291-25; C1725; C1751; C1753; C1757; C1769; C1874; C1887; C1894; C9113; C9606; G0480; J0153; J0171; J0282; J0330; J0696; J1644; J1815; J1940; J2250; J2310; J2704; J2765; J3010; J3246; J3370; J3411; J3475; J3480; J7030; J7050; J7060; J7120; P9046; Q9967

== ENCOUNTER → 2021-03-22 | Outpatient (CLI) | payer BC ==
[~2021-03-22] MED LIST: INSULIN
== END ==
LOC: LAB SHORT 14:46 → LAB 14:46
DX: D48.5 Neoplasm of uncertain behavior of skin (principal); D23.4 Other benign neoplasm of skin of scalp and neck
CPT/HCPCS: 88304

== ENCOUNTER → 2022-09-06 | Outpatient (CLI) | payer BC ==
[2022-09-06 13:20] LABS: Microalb/Creat Ratio UR, Rand 8.477 mg/g (0.000-30.000); Microalbumin, Random Urine 9.07 mg/L (0.000-20.000)
== END | disposition home or self-care (01) ==
LOC: LAB SHORT 08:00 → LAB 08:00
PROVIDERS: Internal Medicine Endocrinology, Diabetes & Metabolism
DX: E11.65 Type 2 diabetes mellitus with hyperglycemia (principal)
CPT/HCPCS: 82043; 82570